=== PATIENT | female | born 1985 | race Caucasian/White ===

== ENCOUNTER 2016-10-20 20:39 | Emergency (ER) | payer MEDICAID ==
[~2016-10-20] VITALS: Wt 71.9 kg
[~2016-10-20 20:39] MED LIST: FOLI0.4T2 PO; PRENAT PO
[2016-10-21] MEDS ORDERED: ONDANSETRON (ODT) 4 MG TAB ODT STA (00:14)
[2016-10-21] MEDS ORDERED: ATEN50TA PO (00:18)
[2016-10-21] MEDS ORDERED: IBUP-1542 PO (00:18)
[2016-10-21] MEDS ORDERED: ONDA4TAB8 PO (00:18)
[2016-10-21] MEDS ORDERED: NICARDipine HCL 30 MG CAPSULE PO ONE (00:30)
[2016-10-21] MEDS ORDERED: IBUPROFEN 600 MG TAB PO ONE (00:30)
[2016-10-21 02:39] VITALS: BP 131/82; PULSE 84; RESP 20
--- NOTE | 2016-10-21 02:40 | ERD ---
ER Documentation Chief Complaint Date/Time DATE: 10/21/16 TIME: 02:31 Chief Complaint NON TRAUMATIC MITCHELL FOR 1 WEEK. NO NEURO DEF SOME NAUSEA NO VOMITING HPI Patient is a 31-year-old female complaining of intermittent headaches for 1 week and nausea and vomiting for 2 days. Patient has history of hypertension and states that her headache appears when her blood pressure is elevated. No recent history of fever, cough, sore throat, chest pain, dizziness , visual disturbance or shortness of breath. Patient takes atenolol for her hypertension and has run out of her prescription. Denies any recent sick contacts. ROS All systems reviewed and are negative except as per history of present illness. Medications Home Meds Active Scripts Atenolol* (Atenolol*) 50 Mg Tablet, 50 MG PO DAILY, #30 TAB Prov:CHAPITO MADDEN 10/21/16 Ondansetron Hcl* (Zofran*) 4 Mg Tablet, 4 MG PO Q6H for NAUSEA AND/OR VOMITING, #30 TAB Prov:CHAPITO MADDEN 10/21/16 Ibuprofen* (Motrin*) 600 Mg Tab, 600 MG PO Q6H Y for PAIN AND OR ELEVATED TEMP, #30 TAB Prov:CHAPITO MADDEN 10/21/16 Reported Medications Folic Acid* (Folic Acid*) 0.4 Mg Tablet, 0.4 MG PO DAILY, TAB 12/26/15 Multivit/Min/Fol Ac/Iron/Pren* ( S*) 1 Tab Tab, 1 TAB PO DAILY, TAB 12/26/15 Allergies Allergies: Coded Allergies: No Known Allergies (Verified Allergy, Unknown, 01/15/15) PMhx/Soc History of Surgery: Yes (APPENDECTOMY ; C SECTION) Anesthesia Reaction: No Hx Neurological Disorder: No Hx Respiratory Disorders: No Hx Cardiac Disorders: No Hx Psychiatric Problems: No Hx Miscellaneous Medical Probl: No Hx Alcohol Use: No Hx Substance Use: No Hx Tobacco Use: No Smoking Status: Never smoker Physical Exam Vitals Vital Signs Date Time Temp Pulse Resp B/P Pulse Ox O2 Delivery O2 Flow Rate FiO2 10/21/16 00:30 85 16 164/95 10/20/16 20:43 98.9 99 20 160/85 98 Physical Exam Physical Exam CONST: Well-developed, well-nourished, in no acute distress. Nontoxic in appearance. HEENT: Atraumatic. Normal Conjunctiva. EOM intact. TM intact. External ear is normal. Clear oropharnyx without erythema. No Uvular deviation. Moist mucous membranes. Supple neck. No meningismus. No submandibular induration. RESP: Clear to auscultation bilaterally. No wheezing. CARDIO: Regular rate and rhythm, no murmurs. ABD: Soft, non tender, non distended. Normal bowel sounds. No McBurney's point tenderness. No guarding or rigidity. No peritoneal signs. SKIN: No petechiae or rashes. BACK: No midline or flank tenderness. EXT: No cyanosis or edema. Distal pulses equal and bilateral. NEURO: Awake and alert, appropriate for age Results 24 hrs Current Medications Medications (Trade) Dose Ordered Sig/Lizeth Route PRN Reason Start Time Stop Time Status Last Admin Dose Admin Nicardipine HCl (Cardene) 30 mg ONCE ONCE PO 10/21/16 00:30 10/21/16 00:31 DC 10/21/16 00:32 Ibuprofen (Motrin) 600 mg ONCE ONCE PO 10/21/16 00:30 10/21/16 00:31 DC 10/21/16 00:32 Ondansetron HCl (Zofran Odt) 4 mg ONCE STAT ODT 10/21/16 00:14 10/21/16 00:16 DC 10/21/16 00:27 Procedures/MDM EMERGENCY DEPARTMENT COURSE/MEDICAL DECISION MAKING This is a 31-year-old Fe who comes to the emergency room secondary to complaints of intermittent headache for 1 week and nausea and vomiting for 2 days. The patient was given Cardene, Zofran and ibuprofen in the department. On re- evaluation, the patient's symptoms improved. My primary diagnosis is hypertension. Secondary diagnosis are headache, nausea and vomiting Differential diagnoses considered, included but not limited to acute appendicitis, [place], diverticulitis, pancreatitis, cholecystitis, gastritis, pyelonephritis, UTI, constipation, inflammatory bowel disease, ectopic , ovarian torsion.. Patient's blood pressure is 164/95 upon discharge but is asymptomatic upon discharge. The patient was discharged for outpatient management with a prescription for ibuprofen, Zofran and atenolol. The patient was advised to followup with their PMD in 1-2 days and to return to the Emergency Department if there are any new or worsening symptoms. The patient understood and agreed with the diagnosis, treatment and plan. Patient is stable for discharge at this time. Departure Diagnosis: Primary Impression: HTN (hypertension) Hypertension type: essential hypertension Qualified Code: I10 - Essential hypertension Additional Impressions: Nausea & vomiting Vomiting type: unspecified Vomiting Intractability: non-intractable Qualified Code: R11.2 - Non-intractable vomiting with nausea, unspecified vomiting type Headache Headache type: unspecified Headache chronicity pattern: acute headache Intractability: not intractable Qualified Code: R51 - Acute nonintractable headache, unspecified headache type Condition: Stable Patient Instructions: Self-Care for Headaches, High Blood Pressure ( Hypertension), Nausea and Vomiting-Adult [facility]errals: [facility] Usted se mitchell hecho un examen mdico de control que le indica que no est en peter condicin que requiera tratamiento urgente en el Departamento de Emergencia. Un estudio ms profundo y el tratamiento de guevara condicin pueden esperar sin ningn riesgo hasta que usted sea atendida/o en el consultorio de guevara mdico o peter cl raina. Es responsabilidad suya arreglar peter barron para el seguimiento del alec. MANEJO DE CONDICIONES NO URGENTES EN EL FUTURO 1) Si usted tiene un mdico de atencin primaria: Usted debera llamar a guevara mdico de atencin primaria antes de venir al departamento de emergencia. Despus de las horas de consultorio, guevara doctor o guevara asociado/a est disponible por telfono. El mdico o enfermero de marcel en el servicio telefnico puede asesorarle por dwayne medio para atender el problema, o alec contrario se puede programar peter barron. 2) Si usted no tiene un mdico de atencin primaria: Llame al mdico o clnica de referencia que aparece abajo stacy las horas de consultorio para hacer peter barron para que le vean. CLINICAS: [facility] [phone] [address] [facility] [place] [address] [phone] [facility]. [facility] [phone] [place] [id number] [phone] [facility] [phone] [address] [facility]. [phone] [address] [facility] () Usted se mitchell hecho un examen mdico de control que le indica que no est en peter condicin que requiera tratamiento urgente en el Departamento de Emergencia. Un estudio ms profundo y el tratamiento de guevara condicin pueden esperar sin ningn riesgo hasta que usted sea atendida/o en el consultorio de guevara mdico o peter cl raina. Es responsabilidad suya arreglar peter barron para el seguimiento del alec. MANEJO DE CONDICIONES NO URGENTES EN EL FUTURO 1) Si usted tiene un mdico de atencin primaria: Usted debera llamar a guevara mdico de atencin primaria antes de venir al departamento de emergencia. Despus de las horas de consultorio, guevara doctor o guevara asociado/a est disponible por telfono. El mdico o enfermero de marcel en el servicio telefnico puede asesorarle por dwayne medio para atender el problema, o alec contrario se puede programar peter barron. 2) Si usted no tiene un mdico de atencin primaria: Llame al mdico o condado institucions de referencia que aparece abajo stacy las horas de consultorio para hacer peter barron para que le vean. SI USTED NO PUEDE PAGAR PARA THU UN MEDICO puede ir a: [facility] [address] [place] [address] [facility] [address] [place] [address] [facility] [address] [place] [address] [facility] [address] [place], [place] [id number] Additional Instructions: Follow-up with your primary care physician in 1-2 days. Return to the emergency department immediately should you have any new or worsening symptoms, uncontrolled fevers, or other unexplained symptoms. Take all medications as directed. CHAPITO MADDEN Oct 21, 2016 02:40
== END 2016-10-21 02:40 | disposition home or self-care (01) ==
LOC: FTE 20:39
DX: I10 Essential (primary) hypertension (principal); R11.2 Nausea with vomiting, unspecified
CPT/HCPCS: Z7502; Z7610; 99284

== ENCOUNTER 2017-03-27 13:16 | Emergency (ER) | payer MEDICAID ==
[~2017-03-27] VITALS: Ht 152.4 cm; Wt 75.5 kg
[~2017-03-27 13:16] MED LIST changes: +ATEN50TA PO; +IBUP-1542 PO; +ONDA4TAB8 PO
[2017-03-27 13:18] VITALS: Ht 152.4 cm; Wt 75.5 kg
[2017-03-27] MEDS ORDERED: ONDANSETRON (ODT) 4 MG TAB ODT STA (14:12)
--- NOTE | 2017-03-27 14:29 | ERD ---
ER Documentation Chief Complaint Date/Time DATE: 03/27/17 TIME: 14:25 Chief Complaint FEELING ANXIOUS WITH NAUSEA AND NUMBNESS IN SHOULDERS HPI Is a 31-year-old female who presents the emergency department today complaining of feeling anxious and nausea for the past 4 days. 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 Denies any chest pain, shortness of breath. States she does take atenolol for hypertension. Denies any fevers or chills ROS All systems reviewed and are negative except as per history of present illness. Medications Home Meds Active Scripts Lorazepam* (Ativan*) 0.5 Mg Tablet, 0.5 MG PO Q8, #8 TAB Prov:TAYO FELIX PA-C 03/27/17 Ondansetron Hcl* (Zofran*) 4 Mg Tablet, 4 MG PO Q6H for NAUSEA AND/OR VOMITING, #30 TAB Prov:TAYO FELIX PA-C 03/27/17 Atenolol* (Atenolol*) 50 Mg Tablet, 50 MG PO DAILY, #30 TAB Prov:CHAPITO MADDEN 10/21/16 Ondansetron Hcl* (Zofran*) 4 Mg Tablet, 4 MG PO Q6H for NAUSEA AND/OR VOMITING, #30 TAB Prov:CHAPITO MADDEN 10/21/16 Ibuprofen* (Motrin*) 600 Mg Tab, 600 MG PO Q6H Y for PAIN AND OR ELEVATED TEMP, #30 TAB Prov:CHAPITO MADDEN 10/21/16 Reported Medications Folic Acid* (Folic Acid*) 0.4 Mg Tablet, 0.4 MG PO DAILY, TAB 12/26/15 Multivit/Min/Fol Ac/Iron/Pren* ( S*) 1 Tab Tab, 1 TAB PO DAILY, TAB 12/26/15 Allergies Allergies: Coded Allergies: No Known Allergies (Verified Allergy, Unknown, 01/15/15) PMhx/Soc History of Surgery: Yes (APPENDECTOMY ; C SECTION) Anesthesia Reaction: No Hx Neurological Disorder: No Hx Respiratory Disorders: No Hx Cardiac Disorders: No Hx Psychiatric Problems: No Hx Miscellaneous Medical Probl: No Hx Alcohol Use: No Hx Substance Use: No Hx Tobacco Use: No Smoking Status: Never smoker Physical Exam Vitals Vital Signs Date Time Temp Pulse Resp B/P Pulse Ox O2 Delivery O2 Flow Rate FiO2 03/27/17 13:18 98.7 91 20 180/99 99 Physical Exam Const: Obese, no acute distress Head: Atraumatic Eyes: Normal Conjunctiva ENT: Normal External Ears, Nose and Mouth. Neck: Full range of motion..~ No meningismus. Resp: Clear to auscultation bilaterally Cardio: Regular rate and rhythm, no murmurs Skin: No petechiae or rashes Ext: No cyanosis, or edema Neur: Awake and alert Psych: Normal Mood and Affect Results 24 hrs Current Medications Medications (Trade) Dose Ordered Sig/Lizeth Route PRN Reason Start Time Stop Time Status Last Admin Dose Admin Lorazepam (Ativan) 1 mg ONCE ONCE PO 03/27/17 14:30 03/27/17 14:31 DC 03/27/17 14:25 Ondansetron HCl (Zofran Odt) 4 mg ONCE STAT ODT 03/27/17 14:12 03/27/17 14:13 DC 03/27/17 14:25 Procedures/MDM This a 31-year-old female who presents the emergency department again complaining of feeling anxious and nauseated since receiving news that her young child has been diagnosed with alopecia. Patient is afebrile and otherwise well-appearing here in the emergency department. Her blood pressure was elevated at 180/99. She states she does take labetalol for her blood pressure. Patient denies any headache, dizziness, blurred vision I low suspicion for hypertensive emergency at this time. However given patient's complaints of anxiety and her elevated blood pressure did obtain an EKG EKG read and interpreted by Dr. Arcos rate [address] elevation. No QT prolongation. Normal sinus rhythm This was given Zofran and Ativan here in the emergency department and symptoms improved.. She will be given a few tablets for home as well as Zofran. She is instructed follow-up with a primary care doctor in regards to her hypertension as well.. At this time the patient is stable for discharge and outpatient management. Patient should follow up with their PCP in the next 1-2 days. They may return to the emergency department sooner for any persistent or worsening of symptoms. Patient understood and agreed with the plan. Departure Diagnosis: Primary Impression: Anxiety Additional Impression: Nausea Condition: TAYO Wakefield PA-C Mar 27, 2017 14:29
[2017-03-27] MEDS ORDERED: LORAZEPAM 1 MG TAB PO ONE (14:30)
[2017-03-27] MEDS ORDERED: ONDA4TAB8 PO (14:57)
[2017-03-27] MEDS ORDERED: LORA-441 PO (14:58)
[2017-03-27 15:08] VITALS: BP 115/68; PULSE 78; RESP 18
== END 2017-03-27 15:08 | disposition home or self-care (01) ==
LOC: FTE 13:16
DX: F41.9 Anxiety disorder, unspecified (principal); R11.0 Nausea; E66.9 Obesity, unspecified; I10 Essential (primary) hypertension; Z68.32 Body mass index [BMI] 32.0-32.9, adult
CPT/HCPCS: 93005; Z7502; Z7610

== ENCOUNTER 2017-04-02 16:01 | Emergency (ER) | payer MEDICAID ==
[~2017-04-02] VITALS: Ht 152.4 cm; Wt 74.0 kg
[~2017-04-02 16:01] MED LIST changes: +LORA-441 PO
[2017-04-02 16:05] VITALS: Ht 152.4 cm; Wt 74.0 kg
[2017-04-02] MEDS ORDERED: SOD CHLORIDE 0.9% 500 ML IV STA (16:18)
[2017-04-02] MEDS ORDERED: LABETALOL HCL 20MG INJ IV ONE (16:30)
[2017-04-02 17:27] LABS: BASOPHIL # 0.1 10^3/ul (0.0-0.1); BASOPHILS % 0.4 % (0.0-2.0); EOSINOPHILS # 0.1 10^3/ul (0.0-0.5); EOSINOPHILS % 0.8 % (0.0-7.0); HEMATOCRIT 39.6 % (37.0-47.0); HEMOGLOBIN 12.8 g/dl (12.0-16.0); LYMPHOCYTES # 3.7 10^3/ul (0.8-2.9); MEAN CORPUSCULAR HEMOGLOBIN 26.3 pg (29.0-33.0); MEAN CORPUSCULAR HGB CONC 32.3 g/dl (32.0-37.0); MEAN CORPUSCULAR VOLUME 81.5 fl (82.0-101.0); MEAN PLATELET VOLUME 11.1 fl (7.4-10.4); MONOCYTE # 0.7 10^3/ul (0.3-0.9); NEUTROPHILS % 60.5 % (39.0-77.0); PLATELET COUNT 280 10^3/UL (140-415); RED BLOOD COUNT 4.86 10^6/ul (4.20-5.40); RED CELL DISTRIBUTION WIDTH 13.3 % (11.5-14.5); WHITE BLOOD COUNT 11.6 10^3/ul (4.8-10.8)
--- NOTE | 2017-04-02 17:40 | RADRPT ---
PROCEDURE: Chest x-ray CLINICAL INDICATION: Chest pain TECHNIQUE: Chest single view COMPARISON: None FINDINGS: The heart. Normal in size. Pulmonary vessels are accentuated due to shallow inspiration. No confl uent pneumonia seen. Is no evidence of pneumothorax. Costophrenic angles are sharp. IMPRESSION: 1. Heart top normal in size. 2. Accentuation of the lung markings related shallow inspiration. 3. No confluent pneumonia RPTAT: HH .Ronnie Power MD, MD Date Time Electronically viewed and signed by .Ronnie Power MD, on 04/02/2017 17:39 .W/
[2017-04-02 17:41] LABS: INR 0.95; PROTIME 12.7 Sec (12.2-14.2)
[2017-04-02 17:42] LABS: PARTIAL THROMBOPLASTIN TIME 26.4 Sec (25.0-35.0)
[2017-04-02 17:51] LABS: ANION GAP 16 (8-16); BLOOD UREA NITROGEN 8 mg/dl (7-20); CALCIUM 9.6 mg/dl (8.4-10.2); CARBON DIOXIDE 21 mmol/L (21-31); CHLORIDE 107 mmol/L (97-110); CREATININE 0.62 mg/dl (0.44-1.00); GLUCOSE 110 mg/dl (70-220); POTASSIUM 3.9 mmol/L (3.5-5.1); SODIUM 140 mmol/L (135-144)
[2017-04-02 18:04] LABS: TROPONIN-I < 0.012 ng/ml (0.00-0.12)
[2017-04-02 18:08] LABS: ADD UMIC NO; UR ASCORBIC ACID NEGATIVE (NEGATIVE); UR BILIRUBIN (Dip) NEGATIVE (NEGATIVE); UR BLOOD (Dip) NEGATIVE (NEGATIVE); UR CLARITY CLEAR (CLEAR); UR COLOR STRAW (YELLOW); UR GLUCOSE (Dip) NEGATIVE (NEGATIVE); UR KETONES (Dip) NEGATIVE (NEGATIVE); UR LEUKOCYTE ESTERASE (Dip) NEGATIVE Leu/ul (NEGATIVE); UR NITRITE (Dip) NEGATIVE (NEGATIVE); UR SPECIFIC GRAVITY (Dip) 1.005 (1.003-1.030); UR TOTAL PROTEIN (Dip) NEGATIVE (NEGATIVE); UR UROBILINOGEN (Dip) NEGATIVE (NEGATIVE)
[2017-04-02] MEDS ORDERED: AMLO-147 PO (18:29)
[2017-04-02] MEDS ORDERED: LABE100T3 PO (18:29)
[2017-04-02] MEDS ORDERED: AMLODIPINE 10 MG TAB PO ONE (18:30)
--- NOTE | 2017-04-02 18:35 | ERD ---
ER Documentation Chief Complaint Date/Time DATE: 04/02/17 TIME: 18:31 Chief Complaint Pt referred by PMD for hypertension and blurry vision today. HPI 31-year-old female presents to the ER for high blood pressure as well as blurry vision. The blurry vision started about 5 or 6 hours ago. She is on labetalol for hypertension from her doctor currently. She is on 50 mg once daily. Her doctor recently diagnosed her with hypertension. She denies any chest pain shortness of breath but did feel slightly lightheaded. ROS All systems reviewed and are negative except as per history of present illness. Medications Home Meds Active Scripts Labetalol Hcl* (Labetalol Hcl*) 100 Mg Tablet, 100 MG PO BID for 30 Days, TAB Prov:CAMMY JOHNSTON DO 04/02/17 Amlodipine Besylate* (Amlodipine Besylate*) 10 Mg Tablet, 10 MG PO DAILY, #30 TAB Prov:CAMMY JOHNSTON DO 04/02/17 Lorazepam* (Ativan*) 0.5 Mg Tablet, 0.5 MG PO Q8, #8 TAB Prov:TAYO FELIX PA-C 03/27/17 Ondansetron Hcl* (Zofran*) 4 Mg Tablet, 4 MG PO Q6H for NAUSEA AND/OR VOMITING, #30 TAB Prov:TAYO FELIX PA-C 03/27/17 Atenolol* (Atenolol*) 50 Mg Tablet, 50 MG PO DAILY, #30 TAB Prov:CHAPITO MADDEN 10/21/16 Ondansetron Hcl* (Zofran*) 4 Mg Tablet, 4 MG PO Q6H for NAUSEA AND/OR VOMITING, #30 TAB Prov:CHAPITO MADDEN 10/21/16 Ibuprofen* (Motrin*) 600 Mg Tab, 600 MG PO Q6H Y for PAIN AND OR ELEVATED TEMP, #30 TAB Prov:CHAPITO MADDEN 10/21/16 Reported Medications Folic Acid* (Folic Acid*) 0.4 Mg Tablet, 0.4 MG PO DAILY, TAB 12/26/15 Multivit/Min/Fol Ac/Iron/Pren* ( S*) 1 Tab Tab, 1 TAB PO DAILY, TAB 12/26/15 Allergies Allergies: Coded Allergies: No Known Allergies (Verified Allergy, Unknown, 01/15/15) PMhx/Soc History of Surgery: Yes (APPENDECTOMY ; C SECTION) Anesthesia Reaction: No Hx Neurological Disorder: No Hx Respiratory Disorders: No Hx Cardiac Disorders: Yes (HTN) Hx Psychiatric Problems: No Hx Miscellaneous Medical Probl: No Hx Alcohol Use: No Hx Substance Use: No Hx Tobacco Use: No Smoking Status: Never smoker Physical Exam Vitals Vital Signs Date Time Temp Pulse Resp B/P Pulse Ox O2 Delivery O2 Flow Rate FiO2 04/02/17 18:15 150/87 04/02/17 16:05 99.4 94 18 192/109 100 Physical Exam Const: [] Mild distress Head: Atraumatic Eyes: Normal Conjunctiva ENT: Normal External Ears, Nose and Mouth. Neck: Full range of motion..~ No meningismus. Resp: Clear to auscultation bilaterally Cardio: Regular rate and rhythm, no murmurs Abd: Soft, non tender, non distended. Normal bowel sounds Skin: No petechiae or rashes Back: No midline or flank tenderness Ext: No cyanosis, or edema Neur: Awake and alert and oriented 3, cranial nerves II through XII intact, no cerebellar deficits, normal gait Psych: Appears slightly anxious Result Diagram: 04/02/17 1625 04/02/17 1625 Results 24 hrs Laboratory Tests Test 04/02/17 16:25 04/02/17 17:00 White Blood Count 11.610^3/ul Red Blood Count 4.8610^6/ul Hemoglobin 12.8g/dl Hematocrit 39.6% Mean Corpuscular Volume 81.5fl Mean Corpuscular Hemoglobin 26.3pg Mean Corpuscular Hemoglobin Concent 32.3g/dl Red Cell Distribution Width 13.3% Platelet Count 06998^3/UL Mean Platelet Volume 11.1fl Neutrophils % 60.5% Lymphocytes % 32.0% Monocytes % 6.0% Eosinophils % 0.8% Basophils % 0.4% Nucleated Red Blood Cells % 0.0/100WBC Neutrophils # (Manual) 7.010^3/ul Lymphocytes # 3.710^3/ul Monocytes # 0.710^3/ul Eosinophils # 0.110^3/ul Basophils # 0.110^3/ul Nucleated Red Blood Cells # 0.010^3/ul Prothrombin Time 12.7Sec Prothrombin Time Ratio 1.0 INR International Normalized Ratio 0.95 Activated Partial Thromboplast Time 26.4Sec Sodium Level 140mmol/L Potassium Level 3.9mmol/L Chloride Level 107mmol/L Carbon Dioxide Level 21mmol/L Anion Gap 16 Blood Urea Nitrogen 8mg/dl Creatinine 0.62mg/dl Glucose Level 110mg/dl Calcium Level 9.6mg/dl Troponin I < 0.012ng/ml Urine Color STRAW Urine Clarity CLEAR Urine pH 6.0 Urine Specific [place] 1.005 Urine Ketones NEGATIVEmg/dL Urine Nitrite NEGATIVEmg/dL Urine Bilirubin NEGATIVEmg/dL Urine Urobilinogen NEGATIVEmg/dL Urine Leukocyte Esterase NEGATIVELeu/ul Urine Hemoglobin NEGATIVEmg/dL Urine Glucose NEGATIVEmg/dL Urine Total Protein NEGATIVEmg/dl Current Medications Medications (Trade) Dose Ordered Sig/Lizeth Route PRN Reason Start Time Stop Time Status Last Admin Dose Admin Sodium Chloride (NS) 500 ml @ 500 mls/hr Q1H STAT IV 04/02/17 16:18 04/02/17 17:17 DC 04/02/17 16:54 Labetalol HCl (Labetalol) 20 mg ONCE ONCE IV 04/02/17 16:30 04/02/17 16:31 DC 04/02/17 16:55 Amlodipine Besylate (Norvasc) 10 mg ONCE ONCE PO 04/02/17 18:30 04/02/17 18:31 DC 04/02/17 18:39 Procedures/MDM EKG interpretation: Normal sinus rhythm, normal axis, normal intervals, no ST or T-wave changes concerning for acute ischemia. Normal respiratory variation. Normal EKG Departure Diagnosis: Primary Impression: Blurred vision, bilateral Additional Impression: Hypertensive crisis Condition: Stable Patient Instructions: Hypertension, Established, Out Of Control Referrals: [facility] YOU HAVE RECEIVED A MEDICAL SCREENING EXAM AND THE RESULTS INDICATE THAT YOU DO NOT HAVE A CONDITION THAT REQUIRES URGENT TREATMENT IN THE EMERGENCY DEPARTMENT. FURTHER EVALUATION AND TREATMENT OF YOUR CONDITION CAN WAIT UNTIL YOU ARE SEEN IN YOUR DOCTORS OFFICE WITHIN THE NEXT 1-2 DAYS. IT IS YOUR RESPONSIBILITY TO MAKE AN APPOINTMENT FOR FOLOW-UP CARE. IF YOU HAVE A PRIMARY DOCTOR --you should call your primary doctor and schedule an appointment IF YOU DO NOT HAVE A PRIMARY DOCTOR YOU CAN CALL OUR PHYSICIAN REFERRAL HOTLINE AT IF YOU CAN NOT AFFORD TO SEE A PHYSICIAN YOU CAN CHOSE FROM THE FOLLOWING [facility] [address] [facility] [address] [facility] [address] [facility] [address] [facility] [facility] [address] [facility]. [facility] [address] Additional Instructions: Llame a guevara doctor MAANA y barrett peter barron para el mismo da.Dle a la secretaria que le instruimos hacer esta barron. Llame si guevara condicin se empeora antes de la barron. CAMMY JOHNSTON DO Apr 02, 2017 18:35
[2017-04-02 19:24] VITALS: BP 146/96; PULSE 80; RESP 18; TEMP 98.8
== END 2017-04-02 19:26 | disposition home or self-care (01) ==
LOC: FTE 16:01
DX: H53.8 Other visual disturbances (principal); I16.9 Hypertensive crisis, unspecified; I10 Essential (primary) hypertension; R07.9 Chest pain, unspecified
CPT/HCPCS: 36415; 71010; 80048; 81003; 84484; 85025; 85610; 85730; 93005; 96374; J7040; Z7502; Z7610

== ENCOUNTER 2017-04-23 10:09 | Emergency (ER) | payer MEDICAID ==
[~2017-04-23] VITALS: Wt 70.0 kg
[~2017-04-23 10:09] MED LIST changes: +AMLO-147 PO; +LABE100T3 PO
[2017-04-23] MEDS ORDERED: LORAZEPAM 1 MG TAB PO ONE (10:30)
[2017-04-23] MEDS ORDERED: ZOLPIDEM 5 MG TAB PO ONE (10:30)
[2017-04-23] MEDS ORDERED: HYDR-842 PO (10:31)
[2017-04-23] MEDS ORDERED: ZOLP5TAB PO (10:31)
--- NOTE | 2017-04-23 10:39 | ERD ---
ER Documentation Chief Complaint Date/Time DATE: 04/23/17 TIME: 10:37 Chief Complaint UNABLE TO SLEEP FOR 3 DAYS. GENERAL FATIGUE. HEADACHE. HX OF ANXIETY HPI 31-year-old female comes in, with history of anxiety complaining of insomnia for the past 3 days. She takes buspirone, also takes fluoxetine for symptoms prescribed by her doctor. She states that she has not been able to sleep because of her anxiety symptoms. She is currently requesting medication for anxiety as well as her sleep at this time. She denies SI. ROS All systems reviewed and are negative except as per history of present illness. Medications Home Meds Active Scripts Hydroxyzine Hcl* (Atarax*) 25 Mg Tab, 25 MG PO Q6H Y for ANXIETY, #15 TAB Prov:COSME SANTOYO PA-C 04/23/17 Zolpidem Tartrate* (Ambien*) 5 Mg Tablet, 5 MG PO HS Y for INSOMNIA, #7 TAB Prov:COSME SANTOYO PA-C 04/23/17 Labetalol Hcl* (Labetalol Hcl*) 100 Mg Tablet, 100 MG PO BID for 30 Days, TAB Prov:CAMMY JOHNSTON DO 04/02/17 Amlodipine Besylate* (Amlodipine Besylate*) 10 Mg Tablet, 10 MG PO DAILY, #30 TAB Prov:CAMMY JOHNSTON DO 04/02/17 Lorazepam* (Ativan*) 0.5 Mg Tablet, 0.5 MG PO Q8, #8 TAB Prov:TAYO FELIX PA-C 03/27/17 Ondansetron Hcl* (Zofran*) 4 Mg Tablet, 4 MG PO Q6H for NAUSEA AND/OR VOMITING, #30 TAB Prov:TAYO FELIX PA-C 03/27/17 Atenolol* (Atenolol*) 50 Mg Tablet, 50 MG PO DAILY, #30 TAB Prov:CHAPITO MADDEN 10/21/16 Ondansetron Hcl* (Zofran*) 4 Mg Tablet, 4 MG PO Q6H for NAUSEA AND/OR VOMITING, #30 TAB Prov:CHAPITO MADDEN 10/21/16 Ibuprofen* (Motrin*) 600 Mg Tab, 600 MG PO Q6H Y for PAIN AND OR ELEVATED TEMP, #30 TAB Prov:CHAPITO MADDEN 10/21/16 Reported Medications Folic Acid* (Folic Acid*) 0.4 Mg Tablet, 0.4 MG PO DAILY, TAB 12/26/15 Multivit/Min/Fol Ac/Iron/Pren* ( S*) 1 Tab Tab, 1 TAB PO DAILY, TAB 12/26/15 Allergies Allergies: Coded Allergies: No Known Allergies (Verified Allergy, Unknown, 01/15/15) PMhx/Soc History of Surgery: Yes (APPENDECTOMY ; C SECTION) Anesthesia Reaction: No Hx Neurological Disorder: No Hx Respiratory Disorders: No Hx Cardiac Disorders: Yes (HTN) Hx Psychiatric Problems: No Hx Miscellaneous Medical Probl: No Hx Alcohol Use: No Hx Substance Use: No Hx Tobacco Use: No Physical Exam Vitals Vital Signs Date Time Temp Pulse Resp B/P Pulse Ox O2 Delivery O2 Flow Rate FiO2 04/23/17 10:11 98.5 73 20 158/91 99 Physical Exam General: Well-developed, well-nourished. The patient appears in no acute distress. HEENT: Head is normocephalic, atraumatic. No scleral icterus. Neck: Supple. Nontender. Lungs: Clear to auscultation. Normal air movement. Heart: Regular rate and rhythm. S1 and S2 are normal. No murmurs, gallops, or rubs. Abdomen: nondistended Extremities: No clubbing or cyanosis. Normal pulses. Moving extremities x 4. No weakness. Neurologic: Alert and oriented 3. No focal deficits. Skin: Normal turgor. No rash or lesions. Psych: anxious Results 24 hrs Current Medications Medications (Trade) Dose Ordered Sig/Lizeth Route PRN Reason Start Time Stop Time Status Last Admin Dose Admin Lorazepam (Ativan) 1 mg ONCE ONCE PO 04/23/17 10:30 04/23/17 10:30 DC Zolpidem Tartrate (Ambien) 10 mg ONCE ONCE PO 04/23/17 10:30 04/23/17 10:31 DC Procedures/MDM 32-year-old female comes in with anxiety, insomnia. Patient does appear to be anxious at this time, she is requesting anxiety medication as well as something for insomnia. I have advised her that because mixing medication and is not safe , we will be able to give her Ambien as long as she is able to get home safely, she states her will be driving her at this time. Patient will be given Atarax for home to take. She does not have any signs of acute psychosis, does not warrant any psychiatric hospitalization or emergent evaluation at this time. Departure Diagnosis: Primary Impression: Insomnia Additional Impression: Anxiety Condition: Good Patient Instructions: Insomnia Additional Instructions: Llame al doctor MAANA y barrett peter ANÍBAL PARA DENTRO DE 1-2 CHOW.Dgale a la secretaria que nosotros le instruimos hacer esta aníbal.Avise o llame si guevara condicin se empeora antes de la aníbal. Regresa aqui si peor o no mejor. COSME SANTOYO PA-C Apr 23, 2017 10:39
== END 2017-04-23 11:03 | disposition home or self-care (01) ==
LOC: FTE 10:09
DX: G47.00 Insomnia, unspecified (principal); F41.9 Anxiety disorder, unspecified; I10 Essential (primary) hypertension
CPT/HCPCS: Z7502; Z7610; 99284

== ENCOUNTER 2018-06-26 11:40 | Emergency (ER) | END 2018-06-26 15:13 | disposition home or self-care (01) ==